=== PATIENT | female | born 1950 | race Caucasian/White ===

== ENCOUNTER 2019-02-26 12:35 | Outpatient (CLI) | payer MEDICARE ==
[2019-02-26] MEDS ORDERED: OMNIPAQUE 350 MG/ML, 100ML BOTTLE ONE ×2 (16:10→16:11)
== END 2019-02-26 23:59 | disposition home or self-care (01) ==
LOC: CFH 12:35
PROVIDERS: ATTEND Surgery
DX: I71.4 Abdominal aortic aneurysm, without rupture (principal); I71.2 Thoracic aortic aneurysm, without rupture; J43.9 Emphysema, unspecified; I70.0 Atherosclerosis of aorta; I70.8 Atherosclerosis of other arteries
CPT/HCPCS: 71275; 74174; 82565; Q9967

== ENCOUNTER → 2019-08-18 | Outpatient (CLI) | payer MEDICARE ==
[~2019-08-18] MED LIST: APIX2.5T PO; CLOP75TA52 PO; [UNRECOGNIZED DRUG - REMARK]
[2019-08-18 16:43] LABS: BASOPHILS # (AUTO) 0.05 x10^3/uL (0-0.1); BASOPHILS % (AUTO) 1 % (0-1); EOSINOPHILS % (AUTO) 1 % (1-7); LYMPHOCYTES # (AUTO) 1.45 x10^3/uL (1-3.4); LYMPHOCYTES % (AUTO) 22 % (22-44); MD NO; MEAN CORPUSCULAR HGB CONC 32.5 g/dL (32.4-35.8); MEAN CORPUSCULAR VOLUME 98.4 fL (80-100); MEAN PLATELET VOLUME 7.3 fL (7.4-10.4); MONOCYTES # (AUTO) 0.62 x10^3/uL (0.2-0.8); MONOCYTES % (AUTO) 9 % (2-9); NEUTROPHILS # (AUTO) 4.44 x10^3/uL (1.8-6.8); NEUTROPHILS % (AUTO) 67 % (42-75); PLATELET COUNT 143 x10^3/uL (130-400); RED BLOOD COUNT 4.66 x10^6/uL (3.82-5.3); RED CELL DISTRIBUTION WIDTH 15.2 % (9.6-15.2)
[2019-08-18 16:53] LABS: ALANINE AMINOTRANSFERASE 37 U/L (12-78); ALBUMIN 3.8 g/dL (3.4-5.0); ANION GAP 4 mmol/L (5-15); CALCIUM 9.3 mg/dL (8.5-10.1); CHLORIDE 108 mmol/L (98-107)
[2019-08-18 16:56] LABS: ALKALINE PHOSPHATASE 106 U/L (45-117); BILIRUBIN,TOTAL 0.8 mg/dL (0.2-1.0); CREATININE 0.87 mg/dL (0.55-1.02); TOTAL PROTEIN 7.9 g/dL (6.4-8.2)
== END | disposition home or self-care (01) ==
LOC: STAR 15:37
PROVIDERS: ATTEND Surgery
DX: Z01.818 Encounter for other preprocedural examination (principal); I65.21 Occlusion and stenosis of right carotid artery; I25.9 Chronic ischemic heart disease, unspecified; I51.7 Cardiomegaly
CPT/HCPCS: 36415; 80053; 85025; 93005

== ENCOUNTER 2019-08-30 14:21 | Inpatient (IN) | payer MEDICARE ==
[~2019-08-30] VITALS: Ht 157.5 cm; Wt 40.4 kg
[2019-08-30] MEDS ORDERED: HEPARIN 1,000 UNITS/ML, 10ML ONE (14:24)
[2019-08-30] MEDS ORDERED: PROTAMINE SULFATE 10 MG/ML, 5ML ONE (14:24)
[2019-08-30] MEDS ORDERED: PAPAVERINE 30 MG/ML, 2ML ONE (14:24)
[2019-08-30] MEDS ORDERED: BUPIVACAINE/PF-EPI 0.5% 1:200K ONE (14:25)
[2019-08-30] MEDS ORDERED: THROMBIN 20,000 UNIT VIAL TP ONE (14:25)
[2019-08-30] MEDS ORDERED: LACTATED RINGERS 1,000 ML IV SCH (14:35)
[2019-08-30] MEDS ORDERED: CHLORHEXIDINE 15 ML UDC MM STA (14:35)
[2019-08-30 15:04] VITALS: BP 156/73
[2019-08-30] MEDS ORDERED: ALPR0.5T7 PO (15:10)
[2019-08-30] MEDS ORDERED: FLUT1AER INH (15:10)
[2019-08-30] MEDS ORDERED: ALEN70TA6 PO (15:10)
[2019-08-30] MEDS ORDERED: TIOT18CA INH (15:10)
[2019-08-30] MEDS ORDERED: MIRT30TA97 PO (15:10)
[2019-08-30] MEDS ORDERED: PANT40TA5 PO (15:10)
[2019-08-30] MEDS ORDERED: ATOR40TA PO (15:10)
[2019-08-30] MEDS ORDERED: AMIT10TA PO (15:10)
[2019-08-30] MEDS ORDERED: FENTANYL PF 250 MCG/5ML ONE (16:03)
[2019-08-30] MEDS ORDERED: ROCURONIUM 10MG/ML,5ML ONE (16:07)
[2019-08-30] MEDS ORDERED: SUCCINYLCHOLINE 20 MG/ML, 10ML ONE (16:07)
[2019-08-30] MEDS ORDERED: PROPOFOL 10 MG/ML, 20ML ONE (16:07)
[2019-08-30] MEDS ORDERED: DEXAMETHASONE 4 MG/ML, 1ML ONE (16:07)
[2019-08-30] MEDS ORDERED: LABETALOL 5MG/ML, 20ML IV PRN (17:00)
[2019-08-30] MEDS ORDERED: ONDANSETRON 2MG/ML, 2ML IVPush PRN (17:00)
[2019-08-30] MEDS ORDERED: HYDROmorphone 1 MG/ML, 1ML INJ IVPush PRN (17:00)
[2019-08-30] MEDS ORDERED: DIPHENHYDRAMINE 50 MG/ML, 1ML IVPush PRN (17:00)
[2019-08-30] MEDS ORDERED: MEPERIDINE/PF 25MG/0.5ML IVPush PRN (17:00)
[2019-08-30] MEDS ORDERED: PROMETHAZINE 12.5 MG SUPP PR PRN (17:00)
[2019-08-30] MEDS ORDERED: hydrALAzine 20 MG/ML, 1ML IV PRN ×2 (17:00→20:30)
[2019-08-30] MEDS ORDERED: EPHEDRINE 50 MG/ML, 1ML IVPush PRN (17:00)
[2019-08-30] MEDS ORDERED: DIAZEPAM 5 MG/ML, 2ML IVPush PRN (17:00)
[2019-08-30] MEDS ORDERED: MIDAZOLAM 1 MG/ML, 2ML IV PRN (17:00)
[2019-08-30] MEDS ORDERED: OXYcodone 5 MG/5 ML ORAL.SOL UDC PO PRN (17:00)
[2019-08-30] MEDS ORDERED: PROMETHAZINE 25 MG/ML, 1ML IVPush PRN (17:00)
[2019-08-30] MEDS ORDERED: ALBUTEROL SULFATE 2.5 MG/3 ML NPPB PRN (17:00)
[2019-08-30] MEDS ORDERED: hydrALAzine 20 MG/ML, 1ML ONE (18:06)
[2019-08-30] MEDS ORDERED: FENTANYL PF 100 MCG/2ML ONE (18:06)
[2019-08-30] MEDS ORDERED: LABETALOL 5MG/ML, 20ML ONE (18:07)
[2019-08-30] MEDS: FENTANYL PF 100 MCG/2ML IV PRN ×3 (18:10→18:40)
[2019-08-30] MEDS ORDERED: ASPIRIN 325 MG TABLET EC ONE (19:40)
[2019-08-30] MEDS ORDERED: ASPIRIN 325 MG TABLET EC PO ONE (20:00)
[2019-08-30] MEDS ORDERED: ONDANSETRON 2MG/ML, 2ML IV PRN (20:30)
[2019-08-30] MEDS ORDERED: LABETALOL 5MG/ML, 20ML IVPush PRN (20:30)
[2019-08-30] MEDS ORDERED: ACETAMINOPHEN 325 MG TABLET PO PRN (20:30)
[2019-08-30] MEDS ORDERED: morphine SULFATE 10 MG/ML, 1ML IV PRN (20:30)
[2019-08-30] MEDS ORDERED: ATORVASTATIN 80 MG TABLET PO SCH (21:00)
[2019-08-30] MEDS ORDERED: AMITRIPTYLINE 10 MG TABLET PO SCH (21:00)
[2019-08-30] MEDS: POTASSIUM CHLORIDE 20 MEQ in LACTATED RINGERS 1,000 ML IV SCH (21:41)
[2019-08-30] MEDS: HYDROcodone/APAP 5/325 TABLET PO PRN (23:33)
[2019-08-30 23:36] VITALS: BP 112/55
[2019-08-31] MEDS: CEFAZOLIN PMX 1GM/50ML 50 ML IVPB SCH ×2 (00:41→09:10)
[2019-08-31 03:43] VITALS: BP 140/71
[2019-08-31] MEDS ORDERED: PANTOPRAZOLE 40MG TABLET PO SCH (06:00)
[2019-08-31] MEDS ORDERED: ALENDRONATE 70 MG TABLET PO SCH (06:30)
[2019-08-31] MEDS: HYDROcodone/APAP 5/325 TABLET PO PRN (07:01)
[2019-08-31 07:22] VITALS: BP 165/75
[2019-08-31] MEDS: POTASSIUM CHLORIDE 20 MEQ in LACTATED RINGERS 1,000 ML IV SCH (08:41)
[2019-08-31] MEDS ORDERED: FLUTICASONE/VILANTEROL 100-25MCG/INH INH SCH (09:00)
[2019-08-31] MEDS ORDERED: ASPIRIN 325 MG TABLET EC PO SCH (09:00)
[2019-08-31] MEDS ORDERED: TIOTROPIUM BROMIDE 18 MCG/INH INH SCH (09:00)
[2019-08-31] MEDS ORDERED: MIRTAZAPINE 30 MG TABLET PO SCH (09:00)
[2019-08-31] MEDS ORDERED: HYDR-3652 PO (09:32)
[2019-08-31] MEDS ORDERED: AMLO5TAB4 PO (09:39)
== END 2019-08-31 10:21 | disposition home or self-care (01) | DRG 39 ==
LOC: SDC 14:21 → EDSTATUS 18:00 → 4NE 19:48 → SDC 19:55 → DCLOUNGE 08-31 10:10
PROVIDERS: ADMIT Surgery; ATTEND Surgery
PROC: 03CM0ZZ Extirpation of Matter from Right External Carotid Artery, Open Approach (ICD-10-PCS; 2019-08-30)
PROC: 03CK0ZZ Extirpation of Matter from Right Internal Carotid Artery, Open Approach (ICD-10-PCS; 2019-08-30)
PROC: 03UH0KZ Supplement Right Common Carotid Artery with Nonautologous Tissue Substitute, Open Approach (ICD-10-PCS; 2019-08-30)
PROC: 03CH0ZZ Extirpation of Matter from Right Common Carotid Artery, Open Approach (ICD-10-PCS; principal; 2019-08-30 18:00)
DX: I65.21 Occlusion and stenosis of right carotid artery (principal); I71.2 Thoracic aortic aneurysm, without rupture; I71.6 Thoracoabdominal aortic aneurysm, without rupture; J44.9 Chronic obstructive pulmonary disease, unspecified; Z86.73 Personal history of transient ischemic attack (TIA), and cerebral infarction without residual deficits
CPT/HCPCS: 36415; 86850; 86900; 87635; C1729; G0378; J0690; J1100; J1644; J2704; J2720; J3010; J3480; C1768; J0330; J0360; J2440; J7120

== ENCOUNTER → 2019-12-03 | Outpatient (CLI) | payer MEDICARE ==
[~2019-12-03] MED LIST changes: +ALEN70TA6 PO; +ALPR0.5T7 PO; +AMIT10TA PO; +AMLO5TAB4 PO; +ATOR40TA PO; +FLUT1AER INH; +HYDR-3652 PO; +MIRT30TA97 PO; +PANT40TA6 PO; +TIOT18CA INH
== END | disposition home or self-care (01) ==
LOC: CVU 08:50
PROVIDERS: ATTEND Surgery
DX: I65.23 Occlusion and stenosis of bilateral carotid arteries (principal); I10 Essential (primary) hypertension; E78.5 Hyperlipidemia, unspecified
CPT/HCPCS: 93880

== ENCOUNTER → 2019-12-31 | Outpatient (CLI) | payer MEDICARE ==
[~2019-12-31] MED LIST changes: -ALEN70TA6 PO; +ALEN70TA66 PO; +OMNIPAQUE 350 MG/ML, 100ML BOTTLE ONE; +OMNIPAQUE 350 MG/ML, 75ML BOTTLE ONE
== END | disposition home or self-care (01) ==
LOC: CFH 09:37
PROVIDERS: ATTEND Surgery
DX: I71.2 Thoracic aortic aneurysm, without rupture (principal); I71.4 Abdominal aortic aneurysm, without rupture; J43.2 Centrilobular emphysema; I25.10 Atherosclerotic heart disease of native coronary artery without angina pectoris; I77.1 Stricture of artery
CPT/HCPCS: 71275; 74174; Q9967